=== PATIENT | female | born 1995 | race Caucasian/White ===

== ENCOUNTER 2021-04-19 10:07 | Emergency (ER) | payer SELFPAY ==
[2021-04-19 10:09] VITALS: BP 128/86; PULSE 78; RESP 20; TEMP 36.8; O2SAT 100
--- NOTE | 2021-04-19 11:17 | ED.GENADULT ---
HPI - General Adult General Chief complaint: Dental/Oral Stated complaint: tooth pain- wants note Time Seen by Provider: 04/19/21 10:17 Source: patient and RN notes reviewed Mode of arrival: ambulatory Limitations: no limitations History of Present Illness HPI narrative: Patient is a 26-year-old female who presents to emergency department for evaluation of left-sided dental pain to the lower posterior wisdom tooth is a moderate aching pain for the last several days denies any fever chills nausea vomiting has not taken anything for symptoms does not have dentistry follow-up Related Data Allergies Allergy/AdvReac Type Severity Reaction Status Date / Time No Known Allergies Allergy Verified 04/19/21 10:19 Review of Systems Review of Systems: All systems reviewed & are unremarkable except as noted in HPI and below PMFSH Social History Social History Gender identity (if verbalized by the patient): Female Exam Narrative: Exam Narrative: GENERAL: Well-appearing, well-nourished, and in no acute distress. HEAD: Normocephalic, atraumatic. EYES: PERRLA and EOMI. ENT: Nares clear, no rhinorrhea or epistaxis. Mucous membranes moist. Tenderness of the posterior left lower wisdom tooth no space-occupying lesions floor the mouth is soft uvula midline NECK: Supple. No adenopathy or masses. CHEST: Clear to auscultation. No respiratory distress. No wheezes rales or rhonchi HEART: Regular rate and rhythm. No murmur heard. EXTREMITIES: Normal range of motion. No edema. SKIN: Warm, dry, no rash. NEURO: No focal deficits. Alert and oriented x3. Cranial nerves II through XII grossly intact PSYCH: Normal mood and affect. Course Course Emergency Course: Patient in the room no distress aware of case findings treatment plan and diagnosis agreeing to follow-up as instructed provided with dentistry follow-up ABCs and vital signs intact and stable Vital Signs Vital signs: Vital Signs Temperature 98.2 F 04/19/21 10:09 Pulse Rate 78 04/19/21 10:09 Respiratory Rate 20 04/19/21 10:09 Blood Pressure 128/86 04/19/21 10:09 Pulse Oximetry 100 04/19/21 10:09 Temperature 98.2 F 04/19/21 10:09 Pulse Rate 78 04/19/21 10:09 Respiratory Rate 20 04/19/21 10:09 Blood Pressure 128/86 04/19/21 10:09 Pulse Oximetry 100 04/19/21 10:09 Medical Decision Making MDM Narrative Medical decision making narrative: Paitents pain and complaint coupled with physical findings are consistant with dentalgia. There are no focal signs of space occupying lesions that are compromising to the ariway. The floor of the mouth is soft with no signs of Ludwigs Angina. Patient is without trismus or drooling and able to swallow secreations. Patient is felt appropriate for discharge home with dental follow up. Vital Signs Vital Signs: Vital Signs Temperature 98.2 F 04/19/21 10:09 Pulse Rate 78 04/19/21 10:09 Respiratory Rate 20 04/19/21 10:09 Blood Pressure 128/86 04/19/21 10:09 Pulse Oximetry 100 04/19/21 10:09 Temperature 98.2 F 04/19/21 10:09 Pulse Rate 78 04/19/21 10:09 Respiratory Rate 20 04/19/21 10:09 Blood Pressure 128/86 04/19/21 10:09 Pulse Oximetry 100 04/19/21 10:09 Discharge Plan Discharge Clinical Impression: Dental abscess, Dental caries Patient Disposition: Home, Self-Care Condition: Stable Instructions: Antibiotic Form, Dental Abscess (ED) Additional Instructions: Follow-up with dentistry in the next 7 days. Go to ER for shortness of breath, difficulty breathing, chest pain, fever/chills, weakness, nauseau/vomitting, unable to swallow or open the mouth etc. or any other concerns. Take any prescribed medications as directed. If you do not have a drug allergy to tylenol or motrin and can tolerate it then take tylenol or motrin as needed for discomfort/pain. Prescriptions: New chlorhexidine gluconate
== END 2021-04-19 11:34 | disposition home or self-care (01) ==
PROVIDERS: Emergency Provider Emergency Medicine; PCP Emergency Medicine
DX: K04.7 Periapical abscess without sinus (principal); K02.9 Dental caries, unspecified
CPT/HCPCS: 99283

== ENCOUNTER 2021-10-15 16:32 | Emergency (ER) | payer SELFPAY ==
--- NOTE | ~2021-10-15 | XR_ITS ---
EXAMINATION:XR_[id number]_CR DATE: 10/15/2021 19:02 INDICATION: Neck pain TECHNIQUE: AP, lateral, and odontoid views of the cervical spine are provided. COMPARISON: None FINDINGS: Alignment is normal. The odontoid is intact. No fracture is identified. Vertebral body heig hts and disk spaces are normal. Prevertebral soft tissues are normal. IMPRESSION: 1. No acute osseous abnormality. Reviewed, dictated and finalized at location F. [facility]
[2021-10-15 16:59] VITALS: BP 147/95; PULSE 84; RESP 16; TEMP 36.1; O2SAT 99
[2021-10-15 17:53] VITALS: BP 132/98; PULSE 95; RESP 14; O2SAT 98
[2021-10-15 19:14] VITALS: BP 116/89; PULSE 77; RESP 76; O2SAT 94
[2021-10-15] MEDS: HYDROcodone/acetaminophen (*CRX) 5-325 MG TABLET 1 TAB PO (19:14)
[2021-10-15 19:15] LABS: Basophils Percent Auto 0.4 % (0.2-1.2); Eosinophils Absolute Auto 0.1 K/mm3 (0-0.3); Eosinophils Percent Auto 1.1 % (0-4.4); Hematocrit 47.1 % (37.0-47.0); Hemoglobin 16.2 g/dL (12.0-15.0); Immature Granulocyte Absolute 0.04 K/mm3 (0.00-0.031); Immature Granulocyte Percent A 0.5 % (0-0.5); Lymphocytes Absolute Auto 2.09 K/mm3 (0.9-3.2); Lymphocytes Percent Auto 26.4 % (18.3-44.2); Mean Corpuscular HGB Conc 34.4 g/dl (32-36); Mean Corpuscular Hemoglobin 31.1 pg (26-34); Mean Corpuscular Volume 90.4 fl (80-100); Mean Platelet Volume 9.5 fl (7.4-10.4); Monocytes Absolute Auto 0.5 K/mm3 (0.1-0.6); Monocytes Percent Auto 6.4 % (2.6-8.5); Neutrophils Absolute Auto 5.2 K/mm3 (1.3-6.7); Neutrophils Percent Auto 65.2 % (45.5-73.1); Platelet Count Result 142 k/mm3 (150-375); Red Blood Count 5.21 M/mm3 (4.2-5.4); Red Cell Distribution Width 11.9 % (11.5-14.5); White Blood Count 7.9 K/mm3 (4.5-10.0)
[2021-10-15 19:23] LABS: Anion Gap 11 mmol/L (8-16); Blood Urea Nitrogen 9 mg/dL (7-17); Calcium 9.4 mg/dL (8.4-10.2); Carbon Dioxide 23 mmol/L (22-30); Chloride 103 mmol/L (98-107); Estimated CRCL calculation 133 ml/min; Estimated Glomerular Filt Rate > 60; Glucose 99 mg/dL (65-110); Potassium 4.1 mmol/L (3.4-5.0); Sodium 137 mmol/L (137-145)
--- NOTE | 2021-10-15 19:42 | ED.NECK ---
HPI - Neck Pain/Injury General Chief Complaint: Neck Pain/Injury Stated Complaint: body aches/congestion/neck pain Time Seen by Provider: 10/15/21 18:42 Source: patient Mode of arrival: ambulatory Limitations: no limitations History of Present Illness HPI Narrative: 26-year-old with no major medical problems here with the neck pain for past 2 or 3 days. Patient states that she woke up with a stiff neck and now pain is getting worse. She also states that she was having cold cough symptoms few days ago which have much subsided. She denies any trauma. complaint: neck pain Onset (ago): day(s) (3) Place: home Severity: moderate Quality: aching and spasming Duration: constant Relieving factors: none and movement Exacerbating factors: none Associated symptoms: none Treatments prior to arrival: none Related Data Allergies Allergy/AdvReac Type Severity Reaction Status Date / Time No Known Allergies Allergy Verified 10/15/21 17:53 Review of Systems Review of Systems: All systems reviewed & are unremarkable except as noted in HPI and below Constitutional: Constitutional: Reports no additional constitutional complaints Eyes: Eyes: Reports no additional eye complaints ENT: Reports nasal congestion and Reports sore throat Respiratory: Respiratory: Reports no additional respiratory complaints Gastrointestinal: Gastrointestinal: Reports no additional gastrointestinal complaints Neurologic: Reports system reviewed and no additional complaints, except as documented Endocrine: Endocrine: Reports no additional endocrine complaints Hematologic/Lymphatic: Hematologic/Lymphatic: Reports no additional hematologic/lymphatic complaints Allergic/Immunologic: Allergic/Immunologic: Reports no additional allergic/immunologic complaints PMFSH Social History Social History Gender identity (if verbalized by the patient): Female Exam Narrative: GENERAL: Well-appearing, well-nourished, crying and tearful HEAD: Normocephalic, atraumatic. EYES: PERRLA and EOMI. ENT: Nares clear, no rhinorrhea or epistaxis. Mucous membranes moist. NECK: Supple. CHEST: Clear to auscultation. No respiratory distress. HEART: Regular rate and rhythm. No murmur heard. Normal peripheral pulses. ABDOMEN: Soft, nontender, nondistended, normal active bowel sounds. EXTREMITIES: Normal range of motion. No edema. SKIN: Warm, dry, no rash. NEURO: No focal deficits. Alert and oriented x3. PSYCH: Normal mood and affect. Course Course Emergency Course: Inform patient about her lab work, x-ray findings. Her pain is much improved with the [place]. Advised her to take pain medication, follow-up with her primary doctor. Vital Signs Vital signs: Vital Signs Temperature 36.1 C L 10/15/21 16:59 Pulse Rate 84 10/15/21 16:59 Respiratory Rate 16 10/15/21 16:59 Blood Pressure 147/95 H 10/15/21 16:59 Pulse Oximetry 99 10/15/21 16:59 Temperature 36.1 C L 10/15/21 16:59 Pulse Rate 77 10/15/21 19:14 Respiratory Rate 76 H 10/15/21 19:14 Blood Pressure 116/89 10/15/21 19:14 Pulse Oximetry 94 10/15/21 19:14 MDM - Neck Pain/Injury Lab Data Result diagrams: 10/15/21 19:06 10/15/21 19:06 Labs: Lab Results 10/15/21 10/15/21 Range/Units 19:06 19:06 WBC 7.9 (4.5-10.0) K/mm3 RBC 5.21 (4.2-5.4) M/mm3 Hgb 16.2 H (12.0-15.0) g/dL Hct 47.1 H (37.0-47.0) % MCV 90.4 (80-100) fl MCH 31.1 (26-34) pg MCHC 34.4 (32-36) g/dl RDW 11.9 (11.5-14.5) % Plt Count 142 L (150-375) k/mm3 MPV 9.5 (7.4-10.4) fl Immature Gran % (Auto) 0.5 (0-0.5) % Neut % (Auto) 65.2 (45.5-73.1) % Lymph % (Auto) 26.4 (18.3-44.2) % [place] % (Auto) 6.4 (2.6-8.5) % Eos % (Auto) 1.1 (0-4.4) % Baso % (Auto) 0.4 (0.2-1.2) % Lymph # (Auto) 2.09 (0.9-3.2) K/mm3 [place] # (Auto) 0.5 (0.1-0.6) K/mm3 Eos # (Auto) 0.1 (0-0.3) K/m
[2021-10-15 19:58] VITALS: BP 141/94; PULSE 77; RESP 16; O2SAT 98
[2021-10-15 20:58] VITALS: BP 135/83; PULSE 78; RESP 16; O2SAT 97
[2021-10-15] MEDS: CYCLOBENZAPRINE HCL 5 MG TABLET PO (21:30)
[2021-10-15 21:32] VITALS: BP 142/98; PULSE 68; RESP 16; O2SAT 95
== END 2021-10-15 21:35 | disposition home or self-care (01) ==
PROVIDERS: Emergency Provider Family Medicine
DX: M43.6 Torticollis (principal)
CPT/HCPCS: 36415; 72040; 80048; 85025; 99283; A9270

== ENCOUNTER 2024-04-30 06:28 | Emergency (ER) | payer OTHER, SELFPAY ==
--- NOTE | ~2024-04-30 | XR_ITS ---
EXAMINATION: XR foot RT min 3V DATE: 04/30/2024 08:18 INDICATION: Laceration to the right foot. Assess for foreign body. TECHNIQUE: Dorsoplantar, two oblique and lateral views of the right foot were obtained. COMPARISON: None. FINDINGS: Alignment is normal. No fracture. Joint spaces are normal. Heterotopic ossification at the lateral ma rgin of the first metatarsophalangeal joint suggesting chronic sprain. The lateral collateral ligamen t complex. Small plantar calcaneal spur. Soft tissues are unremarkable. No radiopaque foreign bodies. IMPRESSION: 1. No acute osseous abnormality or radiopaque foreign body. Reviewed, dictated and finalized at location A.
[2024-04-30 06:32] VITALS: BP 132/82; PULSE 93; RESP 20; TEMP 36.8; O2SAT 97
--- NOTE | 2024-04-30 07:08 | ED.WOUNDLAC ---
HPI - Wound/Laceration General Chief Complaint: Wound/Laceration Stated Complaint: laceration to foot Time Seen by Provider: 04/30/24 07:08 Source: patient History of Present Illness HPI narrative: Patient came to the emergency room with laceration on the bottom of the right foot while intoxicated overnight. Unknown reason. Last tetanus shot 2012. Patient denies other complaint or other injuries. Related Data Allergies Allergy/AdvReac Type Severity Reaction Status Date / Time No Known Allergies Allergy Verified 04/30/24 06:35 Review of Systems Review of Systems: All systems reviewed & are unremarkable except as noted in HPI and below PMFSH Social History Social History Gender identity (if verbalized by the patient): Female Exam Narrative: General appearance: Well-developed, well-nourished Skin: Normal color right foot exam showed 4 cm straight, clean laceration, subcutaneous at the bottom of the right foot. Head: Normocephalic, nontraumatic Eyes: Clear conjunctiva ENT: Oropharynx normal, ears normal, nose normal Neck: Supple, nontender Chest and respiratory: Airway patent, no respiratory distress, no accessory muscle use Heart: Regular rate/rhythm Abdomen: Soft, nontender, no organomegaly, quiet bowel sounds Vascular: Normal peripheral pulses, normal capillary refill. Musculoskeletal: Normal range of motion, nontender back Neurologic: Alert and oriented ?3, [employer] is normal as tested, no gross motor deficit Course Vital Signs Vital signs: Vital Signs Temperature 36.8 C 04/30/24 06:32 Pulse Rate 93 04/30/24 06:32 Respiratory Rate 20 04/30/24 06:32 Blood Pressure 132/82 04/30/24 06:32 Pulse Oximetry 97 04/30/24 06:32 Oxygen Delivery Room Air 04/30/24 06:32 Temperature 36.8 C 04/30/24 06:32 Pulse Rate 93 04/30/24 06:32 Respiratory Rate 20 04/30/24 06:32 Blood Pressure 132/82 04/30/24 06:32 Pulse Oximetry 97 04/30/24 06:32 Oxygen Delivery Room Air 04/30/24 06:32 Procedures Laceration Laceration 1: Date: 04/30/24 Time: 07:24 Site: other (Right foot) Side (If applicable): left and right Size (cm): 5 Description: linear Depth: simple, single layer Local Anesthetic: lidocaine 1% and with epi Amount of anesthesia used (mL): 5 Pre-repair: wound explored and irrigated ====== Skin Level ====== Skin layer closed with: nylon and other Size (cm): 5-0 Number of sutures: 5 Technique: simple, interrupted ====== Subcutaneous Layer ====== ====== Muscle Layer ====== ====== Tendon Layer ====== MDM - Wound/Laceration MDM Narrative Medical decision making narrative: Right foot laceration, x-ray showed no foreign body, patient received a tetanus shot, stitches, discharged on Keflex. Critical Care Time Critical Care Time Critical Care Time: No Discharge Plan Discharge Clinical Impression: Foot laceration Patient Disposition: Home, Self-Care Condition: Stable Instructions: Antibiotic Form, Laceration (ED) Additional Instructions: remove stitches in 8 days, discharge instructions Return if symptoms are worsening , call your family physician for appointment, take Tylenol as as needed for aches and pain, continue home medications. Prescriptions: New cephalexin 500 mg capsule 500 mg PO Q6H 7 Days Qty: 28 0RF No Action hydrocodone-acetaminophen 5-325 mg tablet 1 tablet PO Q8H PRN (Reason: pain) Qty: 10 0RF cyclobenzaprine 5 mg tablet 5 mg PO TID PRN (Reason: muscle spasm) Qty: 20 0RF chlo
[2024-04-30] MEDS: TETANUS,DIPHTHERIA,AC PERTUSSIS ADULT (0.5 ML) BOOSTRIX IM (07:31)
[2024-04-30 10:45] VITALS: BP 126/80; PULSE 78; RESP 16; TEMP 36.6; O2SAT 100
== END 2024-04-30 10:52 | disposition home or self-care (01) ==
LOC: ANHED 07:30
PROVIDERS: Emergency Provider Emergency Medicine
DX: S91.311A Laceration without foreign body, right foot, initial encounter (principal); X58.XXXA Exposure to other specified factors, initial encounter; Z23 Encounter for immunization
CPT/HCPCS: 12002; 73630; 90471; 90715; 99283